=== PATIENT | male | born 1985 | race African-American/Black ===

== ENCOUNTER 2022-01-17 11:40 | Emergency (ER) | payer SELFPAY ==
[2022-01-17 13:15] VITALS: BP 158/111; PULSE 91; RESP 16; TEMP 36.7; O2SAT 98; BMI 31.4
--- NOTE | 2022-01-17 13:21 | HMH.EDUTC ---
[facility] [place] Clinical Impression: UTI (urinary tract infection) Qualifiers: Urinary tract infection type: site unspecified Hematuria presence: without hematuria Qualified Code(s): N39.0 - Urinary tract infection, site not specified Disposition: Home, Self-Care Condition on Discharge: Good Instructions: DI for Urinary Tract Infection (UTI) Additional Instructions: Drink plenty of fluids. Take tylenol or ibuprofen for pain or fever. Take the medications as directed. Follow up with your regular doctor. GO TO THE ER FOR ANY WORSENING SYMPTOMS Follow up in 48 to 72 hours to get the results of your test from today. Prescriptions: Doxycycline Monohydrate [Doxycycline [place] 100mg Tab] 100 mg PO Q12 10 Days #20 tab Transmission Status: Received by [id number] Referrals: Provider,Referral, [Primary Care Provider] - Time of Disposition: 13:35 Medical Decision Making - Medical Records Medical records reviewed: No: I reviewed the patient's medical records. - Tashi Inquiry Pt receiving controlled substance: No Vital Signs: 01/17/22 13:15 01/17/22 13:42 Temperature 98.1 F 98.1 F Temperature Source Oral Pulse Rate 91 H Pulse Rate [Left] 91 H Respiratory Rate 16 16 Blood Pressure 158/111 H Blood Pressure [Right Arm] 158/111 H Blood Pressure Mean [Right Arm] 126 02 Sat by Pulse Oximetry 98 - Lab Data Lab results reviewed: Yes: I reviewed the patient's lab results. Lab Results 01/17/22 13:18: Urine Color Dark yellow, Urine Appearance Cloudy, Urine pH 8.5, Ur Specific Heth 1.025, Urine Protein Trace, Urine Glucose (UA) Negative, Urine Ketones Negative, Urine Blood Negative, Urine Nitrate Negative, Urine Bilirubin Negative, Urine Urobilinogen 1, Ur Leukocyte Esterase 1+ A Orders (Tests/Meds): ED MEDICATIONS Discontinued Medications Generic Name Dose Route Start Last Admin Trade Name Freq PRN Reason Stop Dose Admin Ceftriaxone Sodium 1 gm 01/17/22 13:28 01/17/22 13:35 Ceftriaxone 1gm Vial IM 01/17/22 13:29 1 gm ONCE ONE Administration Lidocaine HCl 0 ml 01/17/22 13:28 01/17/22 13:34 Lidocaine 1% 5ml Pf Vial IM 01/17/22 13:29 2 ml ONCE ONE Administration [facility] [place] - General Stated complaint: std check Time Seen by Provider: 01/17/22 13:21 Mode of Arrival: Ambulatory Source of Information: Patient Limitations: No Limitations Description of Symptoms (Recalled from Triage Doc. by RN): pt c/o burning and d/c from his penis. pt describes the discharge as a whitish yellow milky consistency. pt wants checked for STDs. no known exposure. HEENT Symptoms (Recalled from RN notes): No Resp Symptoms (Recalled from RN notes): No Skin Symptoms (Recalled from RN notes): No MS Symptoms (Recalled from RN notes): No Functional Status (Recalled from RN notes): wnl - History of Present Illness Provider Complaint: He states that he has been having burning with urination, urethral discharge and urinary frequency for the past 2 days. He would like to be tested for std's. He denies any known exposure. - Related Data Previous Rx's Medication Instructions Recorded Doxycycline Monohydrate 100 mg PO Q12 10 Days #20 tab 01/17/22 [Doxycycline [place] 100mg Tab] Allergies Allergy/AdvReac Type Severity Reaction Status Date / Time No Known Allergies Allergy Verified 01/17/22 13:17 - Worker's Comp Is this a Worker's Comp case?: No [facility] History - Hepatitis A Screen Drug use history?: No High risk sexual behaviors?: No History of sexually transmitted infection?: No Currently employed?: No Childcare worker?: No Do you have indoor plumbing?: Yes Do you have electricity?: Yes Attestation statement:: This patient has been screened for Hepatitis A risk factors. I have reviewed the patient's past medical history: Yes ROS Obtained: Yes All systems reviewed & no additional complaints - Constitutional Constitutional: Denies chills, D
[2022-01-17 13:28] LABS: Apearance,Urine Cloudy (Clear); Bilirubin,Urine Negative (Negative); Blood, Urine Negative (Negative); Color,Urine Dark Yellow (Yellow); Glucose,Urine (UA) Negative (Negative); Ketones,Urine Negative (Negative); PH,Urine 8.5 (5.0-8.5); Protein,Urine Trace (Negative); Specific Gravity, Urine 1.025 (1.005-1.030); UTC Leukocyte Esterase,Urine 1+ (Negative); UTC Nitrate,Urine Negative (Negative); Urobilinogen,Urine 1 EU/dl (0.2)
[2022-01-17 13:42] VITALS: BP 158/111; PULSE 91; RESP 16; TEMP 36.7
[2022-01-21 07:23] LABS: Neisseria gonorrhoeae, NAA Positive (Negative)
== END 2022-01-17 13:44 | disposition home or self-care (01) ==
PROVIDERS: Emergency Provider Nurse Practitioner Family
DX: N39.0 Urinary tract infection, site not specified (principal); R36.9 Urethral discharge, unspecified; N48.29 Other inflammatory disorders of penis; R35.0 Frequency of micturition
CPT/HCPCS: 81003; 87086; 87491; 87591; 96372; 99213; G0463; J0696